=== PATIENT | male | born 1970 | race Caucasian/White ===

== ENCOUNTER 2016-08-20 22:42 | Emergency (ER) | payer BC, OTHER ==
[2016-08-20] MEDS ORDERED: AUGMENTIN 875 MG TAB As Ordered ONE (23:23)
[2016-08-20] MEDS ORDERED: NEOSPORIN OINT 0.9 GM PKT (FLOOR STOCK) As Ordered ONE (23:26)
--- NOTE | 2016-08-20 23:48 | EDDOCDS ---
Nurse's Notes [facility] Name: Nicholas Tan Age: 46 yrs Sex: Male : 1970 Arrival Date: 08/20/2016 Time: 22:42 Bed TR8 Private MD: Cresencio Fernández PA Diagnosis: Cellulitis of right toe-great Presentation: 08/20 22:48 Presenting complaint: Patient states: Slipped on ice about a month ago injuring right mcp big toe. Tonight when he took sock off toe looks infected--concern with being diabetic. Adult Sepsis Screening: The patient does not have new or worsening altered mentation. Patient's respiratory rate is less than 22. Systolic blood pressure is greater than 100. Patient has a qSOFA score of 0- Negative Sepsis Screen. Suicide/Homicide risk assessment- the patient denies having any suicidal and/or homicidal ideations and does not present with any other emotional, behavioral or mental health complaints. Status: Patient is not a director of professional services or dependent. Transition of care: patient was not received from another setting of care. 22:48 Acuity: NORMA Level 4 [facility] 22:48 Method Of Arrival: Walkin/Carried/Asstd [facility] Triage Assessment: 22:52 General: Appears in no apparent distress, Behavior is cooperative. Pain: Location: mcp Right first toenail Pain currently is 5 out of 10 on a pain scale. HIV screening NA for this visit Offered previously. Neurological: No deficits noted. Respiratory: Airway is patent Respiratory effort is even, unlabored. Derm: Skin is pink, warm & dry. Historical: - Allergies: no known allergies; - Home Meds: 1. metformin 1,000 mg Oral tab 1 tab 2 times per day 2. simvastatin 40 mg Oral tab 1 tab once daily 3. lisinopril 2.5 mg Oral tab 1 tab once daily 4. Farxiga 5 mg oral tab 1 tab once daily 5. Cinnamon oral 1000mg oral twice a day 6. Vitamin B-12 1,000 mcg Oral tab daily 7. krill oil 562-97-16-50 mg oral cap nightly - PMHx: Diabetes - NIDDM: controlled; Hypercholesterolemia; - PSHx: cyst removed from right arm; - Social history: Smoking status: Patient uses tobacco products, heavy tobacco smoker. No barriers to communication noted, The patient speaks fluent [place]. - Family history: Not pertinent. - : The pt / caregiver states he / she is not on anticoagulants. Home medication list is obtained from the patient. - Exposure Risk Screening:: None identified. Screenin:46 Screening information is obtained from the patient. Fall risk: No risks identified. cz Assistance ADL's: requires no assistance with activities of daily living. Abuse/DV Screen: The patient / caregiver reports he/she is: not in a situation that causes fear, pain or injury. Nutritional screening: No deficits noted. home support is adequate. Assessment: 23:46 General: alert male with red enlarged great toe right foot. cz Vital Signs: 22:44 BP 148 / 99; Pulse 95; Resp 18; Temp 98.5(O); Pulse Ox 98% on R/A; Weight 81.65 kg (R); gr2 Height 5 ft. 8 in. (172.72 cm) (R); Pain 6/10; 22:44 Body Mass Index 27.37 (81.65 kg, 172.72 cm) gr2 Vitals: 22:44 Log In Time: August 20, 2016 at 22:44. gr2 ED Course: 22:44 Patient visited by Courtney Valenzuela. gr2 22:44 Cresencio Fernández is Private Physician. gr2 22:44 Patient moved to Waiting gr2 22:46 Patient visited by Courtney Valenzuela. gr2 22:46 Patient moved to Pre RCE gr2 22:49 Triage Initiated [facility] 22:52 Patient visited by Alexus Oleary RN. [facility] 22:52 Patient moved to Triage 2 [facility] 23:03 Joel Pu[facility]-C [facility]. ar2 23:03 Armando Cardoza DO is Attending Physician. ar2 23:03 Patient visited by Joel Puente PA-C. ar2 23:13 Cresencio Fernández is Referral Physician. ar2 23:37 Patient moved to TR8 cz 23:46 The patient / caregiver is instructed regarding the plan of care and ED course. cz 23:46 No IV's were initiated during this patient's visit. No procedures done that require cz assistance. Administered Medications: 23:30 Drug: Amoxicillin-Clavulanate 1 tabs [amoxicillin 875 mg-potassium clavulanate 125 mg cz tablet (1 tabs)] Route: PO; Order Results: There are currently no results for this order. Outcome: 23:14 Discharge ordered by Provider. ar2 23:46 Discharge Assessment: Patient awake, alert and oriented x 3. No cognitive and/or cz functional deficits noted. Patient verbalized understanding of disposition instructions. patient administered narcotics - no. The following High Risk Discharge criteria are identified: None. Discharged to home ambulatory. Condition: stable. Discharge instructions given to patient, Instructed on discharge instructions, follow up and referral plans. medication usage, Demonstrated understanding of instructions, medications, Pt was receptive of discharge instructions/ teaching. Prescriptions given X 1. No special radiology studies were completed. Property :Personal belongings accompany Pt. 23:47 Patient left the ED. cz Signatures: Alexus Oleary RN RN Jesse Sutton RN RN cz Robertshaw, Aaron, PA-Elijah PAEsme ar2 Courtney Valenzuela gr2 [place]
--- NOTE | 2016-08-20 23:48 | EDDOCDS ---
Physician Documentation [facility] Name: Nicholas Tan Age: 46 yrs Sex: Male : 1970 Arrival Date: 08/20/2016 Time: 22:42 Bed TR8 Private MD: Cresencio Fernández PA Disposition: 08/20/16 23:14 Discharged to Home/Self Care. Impression: Cellulitis of right toe - great. - Condition is Stable. - Discharge Instructions: Cellulitis, Dressing Change. - Prescriptions for Augmentin 875- 125 mg Oral Tablet - take 1 tablet by ORAL route every 12 hours for 10 days; 19 tablet. - Medication Reconciliation, Local Pharmacy Hours form. - Follow up: Cresencio Fernández; When: 2 - 3 days; Reason: Recheck today's complaints, Continuance of care. Follow up: Emergency Department; When: As needed; Reason: Fever > 102F, Worsening of conditions. - Problem is new. - Symptoms are unchanged. - Notes: keep toe wrapped as needed for protection. call for a follow up appointment. Historical: - Allergies: no known allergies; - Home Meds: 1. metformin 1,000 mg Oral tab 1 tab 2 times per day 2. simvastatin 40 mg Oral tab 1 tab once daily 3. lisinopril 2.5 mg Oral tab 1 tab once daily 4. Farxiga 5 mg oral tab 1 tab once daily 5. Cinnamon oral 1000mg oral twice a day 6. Vitamin B-12 1,000 mcg Oral tab daily 7. krill oil 260-27-16-50 mg oral cap nightly - PMHx: Diabetes - NIDDM: controlled; Hypercholesterolemia; - PSHx: cyst removed from right arm; - Social history: Smoking status: Patient uses tobacco products, heavy tobacco smoker. No barriers to communication noted, The patient speaks fluent Serbian. - Family history: Not pertinent. - : The pt / caregiver states he / she is not on anticoagulants. Home medication list is obtained from the patient. - Exposure Risk Screening:: None identified. Vital Signs: 08/20 22:44 BP 148 / 99; Pulse 95; Resp 18; Temp 98.5(O); Pulse Ox 98% on R/A; Weight 81.65 kg / gr2 180.01 lbs (R); Height 5 ft. 8 in. (172.72 cm) (R); Pain 6/10; 22:44 Body Mass Index 27.37 (81.65 kg, 172.72 cm) gr2 MDM: 23:12 Wound Care ordered. ar2 23:12 Amoxicillin-Clavulanate 875 mg 1 tabs PO once ordered. ar2 Administered Medications: 23:30 Drug: Amoxicillin-Clavulanate 1 tabs [amoxicillin 875 mg-potassium clavulanate 125 mg cz tablet (1 tabs)] Route: PO; Signatures: Alexus Oleary, RN RN mcp Jesse Hill RN RN cz Joel Puente, PA-Elijah PA-Elijah ar2 MTDD
--- NOTE | 2016-08-23 00:48 | EDDOCDS ---
Physician Documentation [facility] Name: Nicholas Tan Age: 46 yrs Sex: Male : 1970 Arrival Date: 08/20/2016 Time: 22:42 Bed TR8 Private MD: Cresencio Fernández PA Disposition: 08/20/16 23:14 Discharged to Home/Self Care. Impression: Cellulitis of right toe - great. - Condition is Stable. - Discharge Instructions: Cellulitis, Dressing Change. - Prescriptions for Augmentin 875- 125 mg Oral Tablet - take 1 tablet by ORAL route every 12 hours for 10 days; 19 tablet. - Medication Reconciliation, Local Pharmacy Hours form. - Follow up: Cresencio Fernández; When: 2 - 3 days; Reason: Recheck today's complaints, Continuance of care. Follow up: Emergency Department; When: As needed; Reason: Fever > 102F, Worsening of conditions. - Problem is new. - Symptoms are unchanged. - Notes: keep toe wrapped as needed for protection. call for a follow up appointment. Historical: - Allergies: no known allergies; - Home Meds: 1. metformin 1,000 mg Oral tab 1 tab 2 times per day 2. simvastatin 40 mg Oral tab 1 tab once daily 3. lisinopril 2.5 mg Oral tab 1 tab once daily 4. Farxiga 5 mg oral tab 1 tab once daily 5. Cinnamon oral 1000mg oral twice a day 6. Vitamin B-12 1,000 mcg Oral tab daily 7. krill oil 133-23-68-50 mg oral cap nightly - PMHx: Diabetes - NIDDM: controlled; Hypercholesterolemia; - PSHx: cyst removed from right arm; - Social history: Smoking status: Patient uses tobacco products, heavy tobacco smoker. No barriers to communication noted, The patient speaks fluent Romanian. - Family history: Not pertinent. - : The pt / caregiver states he / she is not on anticoagulants. Home medication list is obtained from the patient. - Exposure Risk Screening:: None identified. Vital Signs: 08/20 22:44 BP 148 / 99; Pulse 95; Resp 18; Temp 98.5(O); Pulse Ox 98% on R/A; Weight 81.65 kg / gr2 180.01 lbs (R); Height 5 ft. 8 in. (172.72 cm) (R); Pain 6/10; 22:44 Body Mass Index 27.37 (81.65 kg, 172.72 cm) gr2 MDM: 23:12 Wound Care ordered. ar2 23:12 Amoxicillin-Clavulanate 875 mg 1 tabs PO once ordered. ar2 08/21 01:22 [facility] Payment Agreement was scanned into [employer] and attached to record. hs2 08:58 T-Sheet-- Draft Copy was scanned into [employer] and attached to record. gb Administered Medications: 08/20 23:30 Drug: Amoxicillin-Clavulanate 1 tabs [amoxicillin 875 mg-potassium clavulanate 125 mg cz tablet (1 tabs)] Route: PO; Signatures: Alexus Oleary RN RN mcp Jesse Hill RN RN cz Lalita Crane, Reg Reg gb Joel Puente PA-C PAEsme ar2 Reema Felix, Reg Reg hs2 The chart was reviewed and I authenticate all verbal orders and agree with the evaluation and treatment provided.Attachments: 08/21 01:22 [facility] Payment Agreement hs2 08:58 T-Sheet-- Draft Copy gb Chart Complete MTDD
--- NOTE | 2016-08-23 00:48 | EDDOCDS ---
Nurse's Notes [facility] Name: Nicholas Tan Age: 46 yrs Sex: Male : 1970 Arrival Date: 08/20/2016 Time: 22:42 Bed TR8 Private MD: Cresencio Fernández PA Diagnosis: Cellulitis of right toe-great Presentation: 08/20 22:48 Presenting complaint: Patient states: Slipped on ice about a month ago injuring right mcp big toe. Tonight when he took sock off toe looks infected--concern with being diabetic. Adult Sepsis Screening: The patient does not have new or worsening altered mentation. Patient's respiratory rate is less than 22. Systolic blood pressure is greater than 100. Patient has a qSOFA score of 0- Negative Sepsis Screen. Suicide/Homicide risk assessment- the patient denies having any suicidal and/or homicidal ideations and does not present with any other emotional, behavioral or mental health complaints. Status: Patient is not a service specialist or dependent. Transition of care: patient was not received from another setting of care. 22:48 Acuity: NORMA Level 4 [facility] 22:48 Method Of Arrival: Walkin/Carried/Asstd [facility] Triage Assessment: 22:52 General: Appears in no apparent distress, Behavior is cooperative. Pain: Location: mcp Right first toenail Pain currently is 5 out of 10 on a pain scale. HIV screening NA for this visit Offered previously. Neurological: No deficits noted. Respiratory: Airway is patent Respiratory effort is even, unlabored. Derm: Skin is pink, warm & dry. Historical: - Allergies: no known allergies; - Home Meds: 1. metformin 1,000 mg Oral tab 1 tab 2 times per day 2. simvastatin 40 mg Oral tab 1 tab once daily 3. lisinopril 2.5 mg Oral tab 1 tab once daily 4. Farxiga 5 mg oral tab 1 tab once daily 5. Cinnamon oral 1000mg oral twice a day 6. Vitamin B-12 1,000 mcg Oral tab daily 7. krill oil 663-18-89-50 mg oral cap nightly - PMHx: Diabetes - NIDDM: controlled; Hypercholesterolemia; - PSHx: cyst removed from right arm; - Social history: Smoking status: Patient uses tobacco products, heavy tobacco smoker. No barriers to communication noted, The patient speaks fluent [place]. - Family history: Not pertinent. - : The pt / caregiver states he / she is not on anticoagulants. Home medication list is obtained from the patient. - Exposure Risk Screening:: None identified. Screenin:46 Screening information is obtained from the patient. Fall risk: No risks identified. cz Assistance ADL's: requires no assistance with activities of daily living. Abuse/DV Screen: The patient / caregiver reports he/she is: not in a situation that causes fear, pain or injury. Nutritional screening: No deficits noted. home support is adequate. Assessment: 23:46 General: alert male with red enlarged great toe right foot. cz Vital Signs: 22:44 BP 148 / 99; Pulse 95; Resp 18; Temp 98.5(O); Pulse Ox 98% on R/A; Weight 81.65 kg (R); gr2 Height 5 ft. 8 in. (172.72 cm) (R); Pain 6/10; 22:44 Body Mass Index 27.37 (81.65 kg, 172.72 cm) gr2 Vitals: 22:44 Log In Time: August 20, 2016 at 22:44. gr2 ED Course: 22:44 Patient visited by Courtney Valenzuela. gr2 22:44 Cresencio Fernández is Private Physician. gr2 22:44 Patient moved to Waiting gr2 22:46 Patient visited by Courtney Valenzuela. gr2 22:46 Patient moved to Pre RCE gr2 22:49 Triage Initiated [facility] 22:52 Patient visited by Alexus Oleary RN. [facility] 22:52 Patient moved to Triage 2 mcp 23:03 [facility]C [facility]. ar2 23:03 Armando Cardoza DO is Attending Physician. ar2 23:03 Patient visited by Joel Puente PA-C. ar2 23:13 Cresencio Fernández is Referral Physician. ar2 23:37 Patient moved to TR8 cz 23:46 The patient / caregiver is instructed regarding the plan of care and ED course. cz 23:46 No IV's were initiated during this patient's visit. No procedures done that require cz assistance. 08/21 01:22 [facility] Payment Agreement was scanned into [employer] and attached to record. hs2 01:38 Patient name changed from Nicholas\S\D\S\Brass\S\ to Nicholas\S\Shantanu\S\Brass. EDMS 08:58 T-Sheet-- Draft Copy was scanned into [employer] and attached to record. gb Administered Medications: 08/20 23:30 Drug: Amoxicillin-Clavulanate 1 tabs [amoxicillin 875 mg-potassium clavulanate 125 mg cz tablet (1 tabs)] Route: PO; Order Results: There are currently no results for this order. Outcome: 23:14 Discharge ordered by Provider. ar2 23:46 Discharge Assessment: Patient awake, alert and oriented x 3. No cognitive and/or cz functional deficits noted. Patient verbalized understanding of disposition instructions. patient administered narcotics - no. The following High Risk Discharge criteria are identified: None. Discharged to home ambulatory. Condition: stable. Discharge instructions given to patient, Instructed on discharge instructions, follow up and referral plans. medication usage, Demonstrated understanding of instructions, medications, Pt was receptive of discharge instructions/ teaching. Prescriptions given X 1. No special radiology studies were completed. Property :Personal belongings accompany Pt. 23:47 Patient left the ED. cz Signatures: Dispatcher [facility] EDID Alexus Oleary, SHEREE RN Jesse Sutton RN RN cz Lalita Crane, Reg Reg gb Joel Puente PA-C PA-C ar2 Courtney Valenzuela gr2 Reema Felix, Reg Reg hs2 Chart Complete MTDD
--- NOTE | 2016-08-23 00:48 | EDDOCDS ---
Physician Documentation [facility] Name: Nicholas Tan Age: 46 yrs Sex: Male : 1970 Arrival Date: 08/20/2016 Time: 22:42 Bed TR8 Private MD: Cresencio Fernández PA Disposition: 08/20/16 23:14 Discharged to Home/Self Care. Impression: Cellulitis of right toe - great. - Condition is Stable. - Discharge Instructions: Cellulitis, Dressing Change. - Prescriptions for Augmentin 875- 125 mg Oral Tablet - take 1 tablet by ORAL route every 12 hours for 10 days; 19 tablet. - Medication Reconciliation, Local Pharmacy Hours form. - Follow up: Cresencio Fernádnez; When: 2 - 3 days; Reason: Recheck today's complaints, Continuance of care. Follow up: Emergency Department; When: As needed; Reason: Fever > 102F, Worsening of conditions. - Problem is new. - Symptoms are unchanged. - Notes: keep toe wrapped as needed for protection. call for a follow up appointment. Historical: - Allergies: no known allergies; - Home Meds: 1. metformin 1,000 mg Oral tab 1 tab 2 times per day 2. simvastatin 40 mg Oral tab 1 tab once daily 3. lisinopril 2.5 mg Oral tab 1 tab once daily 4. Farxiga 5 mg oral tab 1 tab once daily 5. Cinnamon oral 1000mg oral twice a day 6. Vitamin B-12 1,000 mcg Oral tab daily 7. krill oil 496-26-69-50 mg oral cap nightly - PMHx: Diabetes - NIDDM: controlled; Hypercholesterolemia; - PSHx: cyst removed from right arm; - Social history: Smoking status: Patient uses tobacco products, heavy tobacco smoker. No barriers to communication noted, The patient speaks fluent French. - Family history: Not pertinent. - : The pt / caregiver states he / she is not on anticoagulants. Home medication list is obtained from the patient. - Exposure Risk Screening:: None identified. Vital Signs: 08/20 22:44 BP 148 / 99; Pulse 95; Resp 18; Temp 98.5(O); Pulse Ox 98% on R/A; Weight 81.65 kg / gr2 180.01 lbs (R); Height 5 ft. 8 in. (172.72 cm) (R); Pain 6/10; 22:44 Body Mass Index 27.37 (81.65 kg, 172.72 cm) gr2 MDM: 23:12 Wound Care ordered. ar2 23:12 Amoxicillin-Clavulanate 875 mg 1 tabs PO once ordered. ar2 08/21 01:22 [facility] Payment Agreement was scanned into [facility] and attached to record. hs2 08:58 T-Sheet-- Draft Copy was scanned into [facility] and attached to record. gb Administered Medications: 08/20 23:30 Drug: Amoxicillin-Clavulanate 1 tabs [amoxicillin 875 mg-potassium clavulanate 125 mg cz tablet (1 tabs)] Route: PO; Signatures: Alexus Oleary RN RN mcp Jesse Hill RN RN cz Lalita Crane, Reg Reg gb Joel Puente PA-C PAEsme ar2 Reema Felix, Reg Reg hs2 The chart was reviewed and I authenticate all verbal orders and agree with the evaluation and treatment provided.Attachments: 08/21 01:22 [facility] Payment Agreement hs2 08:58 T-Sheet-- Draft Copy gb Chart Complete MTDD
== END 2016-08-20 23:47 | disposition home or self-care (01) ==
LOC: M ED 22:42
DX: L03.031 Cellulitis of right toe (principal); E11.9 Type 2 diabetes mellitus without complications; E78.00 Pure hypercholesterolemia, unspecified; Z72.0 Tobacco use; Z79.899 Other long term (current) drug therapy

== ENCOUNTER 2020-07-02 17:27 | Emergency (ER) | payer OTHER, BC ==
[~2020-07-02] VITALS: Ht 175.3 cm; Wt 89.1 kg
[~2020-07-02 17:27] MED LIST: HYDR-3715 PO
[2020-07-02] MEDS ORDERED: MONT5TAB2 PO (17:34)
[2020-07-02] MEDS ORDERED: LISI2.5T2 PO (17:34)
[2020-07-02] MEDS ORDERED: PIOG1TAB37 PO (17:34)
[2020-07-02] MEDS ORDERED: LEVOTAB10 PO (17:34)
[2020-07-02] MEDS ORDERED: ATOR40TA75 PO (17:34)
[2020-07-02] MEDS ORDERED: XIGD1TAB3 PO (17:34)
--- NOTE | 2020-07-02 17:50 | REP ---
INDICATION: trauma left index finger. COMPARISON: None. TECHNIQUE: AP, lateral, bilateral oblique views left 2nd digit. FINDINGS: The osseous structures and joint spaces are intact and normal. There is no evidence for acute fracture or dislocation. Surrounding soft tissues are unremarkable. No subcutaneous emphysema or radiodense foreign body. IMPRESSION: . No acute fracture or dislocation. <Electronically signed by Cong Rivas > 07/02/20 [id number]
[2020-07-02] MEDS ORDERED: DERMABOND TOPICAL SKIN ADHESIVE TOP ONE (18:45)
[2020-07-02] MEDS ORDERED: BOOSTRIX/ADACEL VACCINE (DIPHTH/PERTUSS/ACELL/TETANUS) 0.5ML SYR IM ONE (19:15)
[2020-07-02 19:34] VITALS: BP 140/73
== END 2020-07-02 19:30 | disposition home or self-care (01) ==
LOC: M ED 17:27
DX: S61.301A Unspecified open wound of left index finger with damage to nail, initial encounter (principal); W23.0XXA Caught, crushed, jammed, or pinched between moving objects, initial encounter; Y92.89 Other specified places as the place of occurrence of the external cause; Y93.89 Activity, other specified; Y99.8 Other external cause status; E11.9 Type 2 diabetes mellitus without complications; Z79.899 Other long term (current) drug therapy; Z79.84 Long term (current) use of oral hypoglycemic drugs

== ENCOUNTER 2024-02-17 02:04 | Emergency (ER) | payer BC, OTHER ==
[~2024-02-17] VITALS: Ht 175.3 cm; Wt 74.4 kg
[~2024-02-17 02:04] MED LIST changes: +ATOR40TA75 PO; +LEVOTAB10 PO; +LISI2.5T9 PO; +MONT10TA97 PO; +PIOG1TAB37 PO; +XIGD1TAB3 PO
[2024-02-17 03:07] LABS: BASO # 0.1 10^3/uL (0.0-0.2); BASO % 0.5 % (0.0-1.0); EOS # 0.2 10^3/uL (0.0-0.5); EOS % 1.4 % (0.0-3.0); HEMATOCRIT 43.1 % (42.0-52.0); HEMOGLOBIN 14.8 g/dl (13.5-17.5); LYMPH # 1.6 10^3/uL (1.5-5.0); LYMPH % 11.8 % (24.0-44.0); MEAN CORPUSCULAR HEMOGLOBIN 32.2 pg (27.0-33.0); MEAN CORPUSCULAR HGB CONC 34.3 g/dl (32.0-36.5); MEAN CORPUSCULAR VOLUME 93.9 fl (80.0-96.0); MONO # 0.7 10^3/uL (0.0-0.8); MONO % 5.1 % (2.0-8.0); NEUTROPHILS # 11.2 10^3/uL (1.5-8.5); NEUTROPHILS % 80.8 % (36.0-66.0); PLATELET COUNT, AUTOMATED 229 10^3/uL (150-450); RED BLOOD COUNT 4.59 10^6/uL (4.30-6.10); WHITE BLOOD COUNT 13.9 10^3/uL (4.0-10.0)
[2024-02-17 03:25] LABS: CK-MB VALUE MASS < 1.0 NG/ML (<3.6); LIPASE 62 U/L (12-53)
[2024-02-17 03:27] LABS: ALBUMIN 3.7 G/DL (3.2-5.2); ALKALINE PHOSPHATASE 119 U/L (46-116); ALT/SGPT 34 U/L (7.0-40); AST/SGOT 53 U/L (<34); BILIRUBIN,DIRECT 0.1 MG/DL (<0.4); BILIRUBIN,TOTAL 0.3 MG/DL (0.3-1.2); BLOOD UREA NITROGEN 7 MG/DL (9-23); CALCIUM LEVEL 8.9 MG/DL (8.5-10.1); CARBON DIOXIDE LEVEL 31 MMOL/L (20-31); CHLORIDE LEVEL 106 MMOL/L (98-107); CPK CREATINE PHOSPHOKINASE 61 U/L (46-171); CREATININE FOR GFR 0.84 MG/DL (0.70-1.30); GLOMERULAR FILTRATION RATE > 60.0 (>56); GLUCOSE, FASTING 142 MG/DL (60-100); MB/CK RELATIVE INDEX 1.63 (< OR =4); POTASSIUM SERUM 3.8 MMOL/L (3.5-5.1); SODIUM LEVEL 140 MMOL/L (136-145); TOTAL PROTEIN 6.6 G/DL (5.7-8.2)
[2024-02-17 04:43] LABS: CK-MB VALUE MASS < 1.0 NG/ML (<3.6)
[2024-02-17 04:52] LABS: CPK CREATINE PHOSPHOKINASE 62 U/L (46-171); MB/CK RELATIVE INDEX 1.61 (< OR =4)
[2024-02-17] MEDS ORDERED: ISOVUE-370 76% 100ML VIAL As Ordered ONE (07:28)
[2024-02-17 10:15] VITALS: BP 135/82; TEMP 98.8; O2SAT 98
== END 2024-02-17 10:22 | disposition home or self-care (01) ==
LOC: M ED 02:04
DX: R07.9 Chest pain, unspecified (principal); E11.9 Type 2 diabetes mellitus without complications; F17.210 Nicotine dependence, cigarettes, uncomplicated; F10.10 Alcohol abuse, uncomplicated; Z79.84 Long term (current) use of oral hypoglycemic drugs; Z79.899 Other long term (current) drug therapy
CPT/HCPCS: 36415; 71046; 71275; 74177; 80048; 80076; 82550; 82553; 83690; 84484; 85025; 93005; 99284; Q9967